=== PATIENT | female | born 1990 | race Hispanic/Latino ===

== ENCOUNTER 2018-10-03 11:54 | Emergency (ER) | payer OTHER ==
[2018-10-03 12:34] LABS: APPEARANCE,URINE Cloudy (CLEAR); BILIRUBIN,URINE Small (NEGATIVE); COLOR,URINE Dark Yellow (YELLOW); GLUCOSE, URINE (UA) Negative (NEGATIVE); KETONES,URINE Trace mg/dL (NEGATIVE); LEUKOCYTE ESTERASE ,URINE Large (NEGATIVE); NITRATE,URINE Positive (NEGATIVE); OCCULT BLOOD,URINE Negative (NEGATIVE); PH,URINE 6.5 (5.0-8.0); PROTEIN,URINE Trace mg/dL (NEGATIVE)
[2018-10-03] MEDS ORDERED: IPRATROPIUM/ALBUTEROL SULFATE 3 ML SOLUTION IH ONE (12:34)
[2018-10-03 12:39] LABS: HCG,QUAL RESULT NEGATIVE (NEGATIVE)
[2018-10-03 12:53] LABS: BACTERIA,URINE Few /HPF (None Seen); RBC,URINE 0-1 /HPF (0-1); SQUAMOUS EPITHELIAL CELL,UR Few /HPF (0-2)
[2018-10-03] MEDS ORDERED: CEFTRIAXONE SODIUM 1 GM ONE (13:37)
[2018-10-03] MEDS ORDERED: LIDOCAINE HCL-MPF 1% 2ML VIAL ONE (13:37)
== END 2018-10-03 13:56 | disposition home or self-care (01) ==
LOC: EDH 11:54
DX: J06.9 Acute upper respiratory infection, unspecified (principal); N30.00 Acute cystitis without hematuria
CPT/HCPCS: 71046; 81001; 81025; 87804 ×2; 94640; 96372; 99285; J0696; J3490